=== PATIENT | male | born 1965 | race Caucasian/White ===

== ENCOUNTER 2017-07-30 13:43 | Inpatient (IN) | payer BC ==
[2017-07-30 15:43] VITALS: BMI 21.8
--- NOTE | 2017-07-30 17:14 | HP ---
CIWA Score - CIWA Score Nausea/Vomitin Muscle Tremors: 4-Moderate,w/Arms Extend Anxiety: 4-Mod. Anxious/Guarded Agitation: 4-Moderately Restless Paroxysmal Sweats: 1-Minimal Palms Moist Orientation: 1-Uncertain about Date Tacttile Disturbances: 0-None Auditory Disturbances: 0-None Visual Disturbances: 0-None Headache: 0-None Present CIWA-Ar Total Score: 16 Admission ROS BHS - HPI Chief Complaint: withdrawal sx Allergies/Adverse Reactions: Allergies Allergy/AdvReac Type Severity Reaction Status Date / Time iodine Allergy Severe Difficulty Verified 07/30/17 17:06 Breathing History of Present Illness: 51 years old male with long history of alcohol dependence methadone 70 mg daily has depression is admitted to detox Exam Limitations: No Limitations - Ebola screening Have you traveled outside of the country in the last 21 days: No Have you had contact with anyone from an Ebola affected area: No Have you been sick,other than usual withdrawal symptoms: No Do you have a fever: No - Review of Systems Constitutional: Loss of Appetite, Changes in sleep, Unintentional Wgt. Loss, Unexplained wgt Loss EENT: reports: Blurred Vision (eye glasses at home), Throat Pain Respiratory: reports: Cough Cardiac: reports: No Symptoms Reported GI: reports: Nausea, Poor Appetite, Poor Fluid Intake, Abdominal cramping : reports: No Symptoms Reported Musculoskeletal: reports: No Symptoms Reported Integumentary: reports: No Symptoms Reported Neuro: reports: Tremors Endocrine: reports: No Symptoms Reported Hematology: reports: No Symptoms Reported Psychiatric: reports: Judgement Intact, Anxious, Depressed Other Systems: Reviewed and Negative Patient History - Patient Medical History Hx Anemia: No Hx Asthma: Yes Hx Chronic Obstructive Pulmonary Disease (COPD): No Hx Cancer: No Hx Cardiac Disorders: Yes (history of ventricular tachycardiac) Hx Congestive Heart Failure: No Hx Hypertension: No Hx Hypercholesterolemia: No Hx Pacemaker: No HX Cerebrovascular Accident: No Hx Seizures: No Hx Dementia: No Hx Diabetes: No Hx Gastrointestinal Disorders: No Hx Liver Disease: No Hx Genitourinary Disorders: No Hx Sexually Transmitted Disorders: No Hx Renal Disease (ESRD): No Hx Thyroid Disease: No Hx Human Immunodeficiency Virus (HIV): No Hx Hepatitis C: No Hx Depression: Yes Hx Suicide Attempt: No Hx Bipolar Disorder: No Hx Schizophrenia: No - Patient Surgical History Past Surgical History: No - PPD History Previous Implant?: Yes Documented Results: Negative w/o proof Implanted On Prior [facility] Admission?: No PPD to be Administered?: Yes - Smoking Cessation Smoking history: Current some day smoker Have you smoked in the past 12 months: No Hx Chewing Tobacco Use: No Initiated information on smoking cessation: No - Substance & Tx. History Hx Alcohol Use: Yes Hx Substance Use: No Substance Use Type: Alcohol Hx Substance Use Treatment: Yes (2013evue) - Substances Abused Alcohol Route: Oral Frequency: Daily Amount used: 4 24 oz beers Age of first use: 40 Date of Last Use: 07/29/17 Family Disease History - Family Disease History Family Disease History: Heart Disease: Mother, [place]: Father (), Other: Father Other Family History: only child Admission Physical Exam S - Vital Signs Vital Signs: Vital Signs - 24 hr 07/30/17 15:40 Temperature 97.5 F L Pulse Rate 108 H Respiratory 18 Rate Blood Pressure 134/93 - Physical General Appearance: Yes: Appropriately Dressed, Moderate Distress, Thin, Tremorous, Irritable, Sweating, Anxious HEENTM: Yes: Hearing grossly Normal, Normal ENT Inspection, Normocephalic, Normal Voice, Nasal Congestion Respiratory: Yes: Chest Non-Tender, Lungs Clear, Normal Breath Sounds, No Respiratory Distress, No Accessory Muscle Use Neck: Yes: Supple, Trachea in good position Breast: Yes: Breasts Symetrical Cardiology: Yes: Regular Rhythm, S1, S2, Tachycardia Abdominal: Yes: Non Tender, Soft, Increased Bowel Sounds Genitourinary: Yes: Within Normal Limits Back: Yes: Normal Inspection Musculoskeletal: Yes: full range of Motion, Gait Steady Extremities: Yes: Normal Inspection, Normal Range of Motion, Non-Tender, Tremors Neurological: Yes: Alert, Motor Strength 5/5, Normal Response, Depressed Affect Integumentary: Yes: Warm Lymphatic: Yes: Within Normal Limits - Diagnostic (1) Alcohol dependence with uncomplicated withdrawal Current Visit: Yes Status: Acute (2) Methadone maintenance therapy patient Current Visit: Yes Status: Chronic Comment: 70 mg daily verification pending (3) Asthma Current Visit: Yes Status: Chronic Qualifiers: Asthma severity: mild intermittent Asthma complication type: with status asthmaticus Qualified Code(s): J45.22 - Mild intermittent asthma with status asthmaticus (4) Weight loss Current Visit: Yes Status: Acute Cleared for Admission [facility] - Detox or Rehab [facility] Level of Care: Medically Managed Detox Regimen/Protocol: Librium [facility] Breath Alcohol Content Breath Alcohol Content: 0 Urine Drug Screen - Results Drug Screen Negative: No Urine Drug Screen Results: MTD-Methadone
[2017-07-30] MEDS ORDERED: MAGNESIUM HYDROX 2400MG/30ML ORAL SUSPENSION 30 ML CUP PO PRN (17:17)
[2017-07-30] MEDS ORDERED: guaiFENesin/D-METHORPHAN HB 10 ML UNIT-DOSE CUPS PO PRN (17:17)
[2017-07-30] MEDS ORDERED: IBUPROFEN 400 MG TABLET (FP) PO PRN (17:17)
[2017-07-30] MEDS ORDERED: P-EPHED 60MG/TRIPROLIDI 2.5MG TABLET PO PRN (17:17)
[2017-07-30] MEDS ORDERED: MAGNESIUM CITRATE 300 ML BOTTLE PO PRN (17:17)
[2017-07-30] MEDS ORDERED: LOPERAMIDE HCL 2 MG CAPSULE PO PRN (17:17)
[2017-07-30] MEDS ORDERED: diphenhydrAMINE HCL 50 MG CAPSULE PO PRN (17:17)
[2017-07-30] MEDS ORDERED: MENTHOL/PHENOL 1 EACH UD MM PRN (17:17)
[2017-07-30] MEDS ORDERED: ACETAMINOPHEN 325 MG TABLET (FP) PO PRN (17:17)
[2017-07-30] MEDS ORDERED: chlordiazePOXIDE HCL 25 MG CAPSULE PO ONE (17:17)
[2017-07-30] MEDS ORDERED: ALBUTEROL SO4 6.7 GM HFA INHALER IH PRN (17:18)
[2017-07-30] MEDS ORDERED: ONDANSETRON *ODT* 4 MG TABLET SL PRN (17:19)
[2017-07-30] MEDS: chlordiazePOXIDE HCL 25 MG CAPSULE PO PRN (19:31)
[2017-07-30 21:14] LABS: URINE APPEARANCE TURBID; URINE BILIRUBIN NEGATIVE (NEGATIVE); URINE BLOOD NEGATIVE (NEGATIVE); URINE COLOR AMBER; URINE GLUCOSE (UA) NEGATIVE (NEGATIVE); URINE KETONE NEGATIVE (NEGATIVE); URINE LEUK ESTERASE NEGATIVE (NEGATIVE); URINE NITRITE NEGATIVE (NEGATIVE)
[2017-07-30 21:19] LABS: URINE PROTEIN 1+ (NEGATIVE)
[2017-07-30 21:33] LABS: URINE BACTERIA RARE /hpf (NONE SEEN); URINE RBC 5 /hpf (0-3); URINE WBC 14 /hpf (3-5)
[2017-07-30] MEDS: chlordiazePOXIDE HCL 25 MG CAPSULE PO SCH (22:17)
[2017-07-30] MEDS: THIAMINE HCL 100 MG TABLET (FP) PO SCH (22:18)
[2017-07-31] MEDS: hydrOXYzine PAMOATE 50 MG CAPSULE (FP) PO PRN (06:58)
[2017-07-31] MEDS: chlordiazePOXIDE HCL 25 MG CAPSULE PO SCH ×4 (06:58→22:06)
--- NOTE | 2017-07-31 09:30 | EKG ---
Test Reason : Blood Pressure : / mmHG Vent. Rate : 060 BPM Atrial Rate : 060 BPM P-R Int : 128 ms QRS Dur : 090 ms QT Int : 426 ms P-R-T Axes : 064 078 085 degrees QTc Int : 426 ms SINUS RHYTHM WITH PREMATURE ATRIAL COMPLEXES POSSIBLE LEFT ATRIAL ENLARGEMENT NONSPECIFIC T WAVE ABNORMALITY ABNORMAL ECG NO PREVIOUS ECGS AVAILABLE Confirmed by MD FIDELINA, RAH ([id number]) on 07/31/2017 9:30:33 AM Referred By: Confirmed By:RAH KITCHEN MD
[2017-07-31] MEDS: PRENATAL VITAMINS W/ FOLIC ACID TABLET (FP) PO SCH (10:17)
[2017-07-31] MEDS ORDERED: METHADONE HCL 10 MG TABLET PO ONE (10:19)
[2017-07-31] MEDS ORDERED: METHADONE 40 MG, METHADONE 30 MG PO ONE (10:45)
[2017-07-31] MEDS ORDERED: METHADONE HCL 40 MG DISPERSABLE TABLET ONE (10:46)
[2017-07-31] MEDS ORDERED: METHADONE HCL 10 MG TABLET ONE (10:46)
[2017-07-31 11:05] LABS: ANION GAP 12 (8-16); CALCIUM 9.5 mg/dL (8.5-10.1); CO2 32 mmol/L (21-32); CREATININE 0.8 mg/dL (0.7-1.3); GLUCOSE,RANDOM 157 mg/dL (74-106); MCH 30.8 pg (25.7-33.7); MCHC 33.5 g/dl (32.0-35.9); MEAN CELL VOLUME 92.1 fl (80-96); MEAN PLT VOLUME 8.2 fl (7.5-11.1); PLATELET COUNT 249 K/MM3 (134-434); RDW 14.3 % (11.9-15.9); SGOT/AST 34 U/L (15-37); SGPT/ALT 29 U/L (12-78); WHITE BLOOD COUNT 13.4 K/mm3 (4.0-10.0)
[2017-07-31 11:07] LABS: ALK PHOS 166 U/L (45-117); BILIRUBIN,TOTAL 1.5 mg/dL (0.2-1.0)
--- NOTE | 2017-07-31 12:07 | PN ---
S CIWA - CIWA Score Nausea/Vomitin Muscle Tremors: 3 Anxiety: 3 Agitation: 3 Paroxysmal Sweats: 3 Orientation: 0-Oriented Tacttile Disturbances: 2-Mild Itch/Numbness/Burn Auditory Disturbances: 0-None Visual Disturbances: 0-None Headache: 2-Mild CIWA-Ar Total Score: 19 S Progress Note (SOAP) Subjective: shakes, sweats, anxiety, nausea Objective: 07/31/17 12:05 Vital Signs - 8 hr 07/31/17 07/31/17 07/31/17 04:52 06:48 10:00 Temperature 98.1 F 98.4 F Pulse Rate 88 121 H Respiratory 18 18 20 Rate Blood Pressure 137/98 119/86 Laboratory Last Values WBC 13.4 K/mm3 (4.0-10.0) H 07/31/17 07:50 RBC 5.28 M/mm3 (4.00-5.60) 07/31/17 07:50 Hgb 16.3 GM/dL (11.7-16.9) 07/31/17 07:50 Hct 48.7 % (35.4-49) 07/31/17 07:50 MCV 92.1 fl (80-96) 07/31/17 07:50 MCH 30.8 pg (25.7-33.7) 07/31/17 07:50 MCHC 33.5 g/dl (32.0-35.9) 07/31/17 07:50 RDW 14.3 % (11.9-15.9) 07/31/17 07:50 Plt Count 249 K/MM3 (134-434) 07/31/17 07:50 MPV 8.2 fl (7.5-11.1) 07/31/17 07:50 Sodium 133 mmol/L (136-145) L 07/31/17 07:50 Potassium 3.0 mmol/L (3.5-5.1) L 07/31/17 07:50 Chloride 89 mmol/L (98-107) L 07/31/17 07:50 Carbon Dioxide 32 mmol/L (21-32) 07/31/17 07:50 Anion Gap 12 (8-16) 07/31/17 07:50 BUN 8 mg/dL (7-18) 07/31/17 07:50 Creatinine 0.8 mg/dL (0.7-1.3) 07/31/17 07:50 Creat Clearance w eGFR > 60 (>60) 07/31/17 07:50 Random Glucose 157 mg/dL (74-106) H 07/31/17 07:50 Calcium 9.5 mg/dL (8.5-10.1) 07/31/17 07:50 Total Bilirubin 1.5 mg/dL (0.2-1.0) H 07/31/17 07:50 AST 34 U/L (15-37) 07/31/17 07:50 ALT 29 U/L (12-78) 07/31/17 07:50 Alkaline Phosphatase 166 U/L (45-117) H 07/31/17 07:50 Total Protein 8.0 g/dl (6.4-8.2) 07/31/17 07:50 Albumin 4.0 g/dl (3.4-5.0) 07/31/17 07:50 Urine Color [place] 07/30/17 20:00 Urine Appearance Turbid 07/30/17 20:00 Urine pH 8.0 (5.0-8.0) 07/30/17 20:00 Ur Specific [place] 1.015 (1.005-1.025) 07/30/17 20:00 Urine Protein 1+ (NEGATIVE) H 07/30/17 20:00 Urine Glucose (UA) Negative (NEGATIVE) 07/30/17 20:00 Urine Ketones Negative (NEGATIVE) 07/30/17 20:00 Urine Blood Negative (NEGATIVE) 07/30/17 20:00 Urine Nitrite Negative (NEGATIVE) 07/30/17 20:00 Urine Bilirubin Negative (NEGATIVE) 07/30/17 20:00 Urine Urobilinogen 2.0 mg/dL (0.2-1.0) 07/30/17 20:00 Ur Leukocyte Esterase Negative (NEGATIVE) 07/30/17 20:00 Urine RBC 5 /hpf (0-3) 07/30/17 20:00 Urine WBC 14 /hpf (3-5) 07/30/17 20:00 Urine Bacteria Rare /hpf (NONE SEEN) 07/30/17 20:00 lab noted, elevated white count, no fever or signs of infection Assessment: 07/31/17 12:06 withdrawal sx, leukocytosis Plan: continue detox, repeat CBC
[2017-07-31] MEDS: chlordiazePOXIDE HCL 25 MG CAPSULE PO PRN (14:21)
--- NOTE | 2017-07-31 17:47 | CONSULT ---
[facility] Psychiatric Consult - Data Date of interview: 07/31/17 Admission source: [facility] Identifying data: First admission to [facility] for this 51 y/o male seeking detox treatment on for alcohol dependence.Patient is single,a father of one,homeless,unemployed and currently supported on unemployment benefits. Substance Abuse History: Confirmed by patient. Smoking Cessation. Smoking history: Current some day smoker. Have you smoked in the past 12 months: No. Hx Chewing Tobacco Use: No. Initiated information on smoking cessation: No. - Substance & Tx. History. Hx Alcohol Use: Yes. Hx Substance Use: No. Substance Use Type: Alcohol. Hx Substance Use Treatment: Yes (2013). - Substances Abused. Alcohol. Route: Oral. Frequency: Daily. Amount used : 4 24 oz beers. Age of first use: 40. Date of Last Use: 07/29/17 Medical History: Weight loss,bronchial asthma and a history of ventricular tachycardia. Psychiatric History: Patient denies. Physical/Sexual Abuse/Trauma History: Patient denies. Additional Comment: Urine Drug Screen Results: MTD-Methadone.Noted. Mental Status Exam - Mental Status Exam Alert and Oriented to: Time, Place, Person Cognitive Function: Good Patient Appearance: Well Groomed (frail habitus,thin) Mood: Nervous, Withdrawn, Anxious, Hopeful Affect: Mood Congruent Patient Behavior: Fatigued, Cooperative Speech Pattern: Clear, Appropriate Voice Loudness: Normal Thought Process: Goal Oriented Thought Disorder: Not Present Hallucinations: Denies Suicidal Ideation: Denies Homicidal Ideation: Denies Insight/Judgement: Poor Sleep: Poorly, Difficulty falling asleep Appetite: Good Muscle strength/Tone: Normal Gait/Station: Normal Psychiatric Findings - Problem List ([place] 1, 2,3) (1) Alcohol dependence with uncomplicated withdrawal Current Visit: Yes Status: Acute (2) Opioid dependence on agonist therapy Current Visit: Yes Status: Acute (3) Nicotine dependence Current Visit: Yes Status: Acute (4) Substance induced mood disorder Current Visit: Yes Status: Acute (5) Weight loss Current Visit: Yes Status: Acute (6) Asthma Current Visit: Yes Status: Chronic Qualifiers: Asthma severity: mild intermittent Asthma complication type: with status asthmaticus Qualified Code(s): J45.22 - Mild intermittent asthma with status asthmaticus (7) Insomnia Current Visit: Yes Status: Acute - Initial Treatment Plan Initial Treatment Plan: Psychoeducation.Detoxification.Ambien 5 mg po hs prn.Patient made aware of risk of parasomnias.He agrees with careplan.Observation.
[2017-07-31] MEDS: THIAMINE HCL 100 MG TABLET (FP) PO SCH (22:06)
[2017-07-31] MEDS: ZOLPIDEM TARTRATE 5 MG TABLET PO PRN (22:06)
[2017-08-01] MEDS ORDERED: METHADONE HCL 40 MG DISPERSABLE TABLET ONE (04:53)
[2017-08-01] MEDS ORDERED: METHADONE HCL 10 MG TABLET ONE (04:54)
[2017-08-01] MEDS: METHADONE 40 MG, METHADONE 30 MG PO SCH (05:20)
[2017-08-01] MEDS: chlordiazePOXIDE HCL 25 MG CAPSULE PO SCH ×3 (05:20→17:29)
[2017-08-01] MEDS ORDERED: METHADONE HCL 10 MG TABLET PO SCH (06:00)
[2017-08-01] MEDS: POTASSIUM CHLORIDE TABS 20 MEQ TABLET.ER (FP) PO SCH (07:51)
[2017-08-01] MEDS: hydrOXYzine PAMOATE 50 MG CAPSULE (FP) PO PRN ×2 (07:52→15:25)
[2017-08-01] MEDS: PRENATAL VITAMINS W/ FOLIC ACID TABLET (FP) PO SCH (10:05)
[2017-08-01] MEDS: MAG HYDROX/AL HYDROX/SIMETH 30 ML UNIT-DOSE CUP PO PRN (15:25)
--- NOTE | 2017-08-01 19:37 | PN ---
[facility] CIWA - CIWA Score Nausea/Vomitin-No Nausea/No Vomiting Muscle Tremors: 3 Anxiety: 4-Mod. Anxious/Guarded Agitation: 4-Moderately Restless Paroxysmal Sweats: 3 Orientation: 0-Oriented Tacttile Disturbances: 0-None Auditory Disturbances: 0-None Visual Disturbances: 0-None Headache: 0-None Present CIWA-Ar Total Score: 14 BHS Progress Note (SOAP) Subjective: Anxiety,tremors,sweating,interrupted sleep,restless. Objective: 08/01/17 19:35 Vital Signs - 8 hr 08/01/17 08/01/17 14:40 17:37 Temperature 97.3 F L 97.2 F L Pulse Rate 100 H 109 H Respiratory 18 18 Rate Blood Pressure 113/79 126/78 Laboratory Last Values WBC 13.4 K/mm3 (4.0-10.0) H 07/31/17 07:50 RBC 5.28 M/mm3 (4.00-5.60) 07/31/17 07:50 Hgb 16.3 GM/dL (11.7-16.9) 07/31/17 07:50 Hct 48.7 % (35.4-49) 07/31/17 07:50 MCV 92.1 fl (80-96) 07/31/17 07:50 MCH 30.8 pg (25.7-33.7) 07/31/17 07:50 MCHC 33.5 g/dl (32.0-35.9) 07/31/17 07:50 RDW 14.3 % (11.9-15.9) 07/31/17 07:50 Plt Count 249 K/MM3 (134-434) 07/31/17 07:50 MPV 8.2 fl (7.5-11.1) 07/31/17 07:50 Sodium 133 mmol/L (136-145) L 07/31/17 07:50 Potassium 3.0 mmol/L (3.5-5.1) L 07/31/17 07:50 Chloride 89 mmol/L (98-107) L 07/31/17 07:50 Carbon Dioxide 32 mmol/L (21-32) 07/31/17 07:50 Anion Gap 12 (8-16) 07/31/17 07:50 BUN 8 mg/dL (7-18) 07/31/17 07:50 Creatinine 0.8 mg/dL (0.7-1.3) 07/31/17 07:50 Creat Clearance w eGFR > 60 (>60) 07/31/17 07:50 Random Glucose 157 mg/dL (74-106) H 07/31/17 07:50 Calcium 9.5 mg/dL (8.5-10.1) 07/31/17 07:50 Total Bilirubin 1.5 mg/dL (0.2-1.0) H 07/31/17 07:50 AST 34 U/L (15-37) 07/31/17 07:50 ALT 29 U/L (12-78) 07/31/17 07:50 Alkaline Phosphatase 166 U/L (45-117) H 07/31/17 07:50 Total Protein 8.0 g/dl (6.4-8.2) 07/31/17 07:50 Albumin 4.0 g/dl (3.4-5.0) 07/31/17 07:50 Urine Color [place] 07/30/17 20:00 Urine Appearance Turbid 07/30/17 20:00 Urine pH 8.0 (5.0-8.0) 07/30/17 20:00 Ur Specific [place] 1.015 (1.005-1.025) 07/30/17 20:00 Urine Protein 1+ (NEGATIVE) H 07/30/17 20:00 Urine Glucose (UA) Negative (NEGATIVE) 07/30/17 20:00 Urine Ketones Negative (NEGATIVE) 07/30/17 20:00 Urine Blood Negative (NEGATIVE) 07/30/17 20:00 Urine Nitrite Negative (NEGATIVE) 07/30/17 20:00 Urine Bilirubin Negative (NEGATIVE) 07/30/17 20:00 Urine Urobilinogen 2.0 mg/dL (0.2-1.0) 07/30/17 20:00 Ur Leukocyte Esterase Negative (NEGATIVE) 07/30/17 20:00 Urine RBC 5 /hpf (0-3) 07/30/17 20:00 Urine WBC 14 /hpf (3-5) 07/30/17 20:00 Urine Bacteria Rare /hpf (NONE SEEN) 07/30/17 20:00 RPR Titer Nonreactive (NONREACTIVE) 07/31/17 07:50 labs noted Assessment: 08/01/17 19:36 Withdrawal sx. Plan: Continue detox
[2017-08-01] MEDS: ZOLPIDEM TARTRATE 5 MG TABLET PO PRN (22:02)
[2017-08-01] MEDS: THIAMINE HCL 100 MG TABLET (FP) PO SCH (22:02)
[2017-08-01] MEDS: chlordiazePOXIDE 5 MG CAPSULE PO SCH (22:02)
[2017-08-02] MEDS ORDERED: METHADONE HCL 40 MG DISPERSABLE TABLET ONE (04:49)
[2017-08-02] MEDS ORDERED: METHADONE HCL 10 MG TABLET ONE (04:50)
[2017-08-02] MEDS: chlordiazePOXIDE 5 MG CAPSULE PO SCH ×3 (05:40→17:42)
[2017-08-02] MEDS: METHADONE 40 MG, METHADONE 30 MG PO SCH (05:41)
[2017-08-02] MEDS: hydrOXYzine PAMOATE 50 MG CAPSULE (FP) PO PRN ×2 (09:16→17:42)
[2017-08-02] MEDS: PRENATAL VITAMINS W/ FOLIC ACID TABLET (FP) PO SCH (10:06)
[2017-08-02] MEDS: POTASSIUM CHLORIDE TABS 20 MEQ TABLET.ER (FP) PO SCH (10:06)
[2017-08-02 10:17] LABS: MCH 31.1 pg (25.7-33.7); MCHC 33.5 g/dl (32.0-35.9); MEAN CELL VOLUME 93.1 fl (80-96); MEAN PLT VOLUME 8.2 fl (7.5-11.1); PLATELET COUNT 164 K/MM3 (134-434); RDW 14.6 % (11.9-15.9); WHITE BLOOD COUNT 11.2 K/mm3 (4.0-10.0)
[2017-08-02 10:25] LABS: ANION GAP 5 (8-16); CALCIUM 8.9 mg/dL (8.5-10.1); CO2 33 mmol/L (21-32); CREATININE 0.7 mg/dL (0.7-1.3); GLUCOSE,RANDOM 82 mg/dL (74-106)
[2017-08-02 10:29] LABS: ALK PHOS 134 U/L (45-117); BILIRUBIN,TOTAL 0.4 mg/dL (0.2-1.0)
--- NOTE | 2017-08-02 10:34 | PN ---
BHS Progress Note (SOAP) Subjective: anxiety sweats Objective: 08/02/17 10:32 Vital Signs Temperature 98.2 F 08/02/17 09:54 Pulse Rate 106 H 08/02/17 09:54 Respiratory Rate 18 08/02/17 09:54 Blood Pressure 133/84 08/02/17 09:54 O2 Sat by Pulse Oximetry (%) AAOx3 ambulating no acute distress Assessment: 08/02/17 10:33 withdrawal sx Plan: continue detox increase fluids clonidine 0.1mg x one
[2017-08-02] MEDS ORDERED: cloNIDine HCL 0.1 MG TABLET PO ONE (10:45)
[2017-08-02] MEDS: chlordiazePOXIDE HCL 25 MG CAPSULE PO PRN (13:54)
[2017-08-02] MEDS: chlordiazePOXIDE HCL 10 MG CAPSULE PO SCH (22:06)
[2017-08-02] MEDS: ZOLPIDEM TARTRATE 5 MG TABLET PO PRN (22:06)
[2017-08-02] MEDS: THIAMINE HCL 100 MG TABLET (FP) PO SCH (22:06)
[2017-08-02] MEDS: MAG HYDROX/AL HYDROX/SIMETH 30 ML UNIT-DOSE CUP PO PRN (22:07)
[2017-08-03] MEDS ORDERED: METHADONE HCL 40 MG DISPERSABLE TABLET ONE (04:31)
[2017-08-03] MEDS ORDERED: METHADONE HCL 10 MG TABLET ONE (04:32)
[2017-08-03] MEDS: METHADONE 40 MG, METHADONE 30 MG PO SCH (05:33)
[2017-08-03] MEDS: chlordiazePOXIDE HCL 10 MG CAPSULE PO SCH (05:34)
[2017-08-03] MEDS: MAG HYDROX/AL HYDROX/SIMETH 30 ML UNIT-DOSE CUP PO PRN (05:34)
[2017-08-03] MEDS: hydrOXYzine PAMOATE 50 MG CAPSULE (FP) PO PRN (07:42)
--- NOTE | 2017-08-03 09:44 | DS ---
[facility] Detox Discharge Summary Admission Date: 07/30/17 Discharge Date: 08/03/17 - History Present History: Alcohol Dependence, Opioid Dependence Pertinent Past History: anxiety, depression, nicotine dependence, insomnia - Physical Exam Results Vital Signs: Vital Signs Temperature 98.2 F 08/03/17 06:46 Pulse Rate 77 08/03/17 06:46 Respiratory Rate 16 08/03/17 06:46 Blood Pressure 107/70 08/03/17 06:46 O2 Sat by Pulse Oximetry (%) Laboratory Tests 07/30/17 07/31/17 07/31/17 20:00 07:50 07:50 WBC 13.4 H RBC 5.28 Hgb 16.3 Hct 48.7 MCV 92.1 MCH 30.8 MCHC 33.5 RDW 14.3 Plt Count 249 MPV 8.2 Sodium 133 L Potassium 3.0 L Chloride 89 L Carbon Dioxide 32 Anion Gap 12 BUN 8 Creatinine 0.8 Creat Clearance w eGFR > 60 Random Glucose 157 H Calcium 9.5 Total Bilirubin 1.5 H AST 34 ALT 29 Alkaline Phosphatase 166 H Total Protein 8.0 Albumin 4.0 Urine Color [place] Urine Appearance Turbid Urine pH 8.0 Ur Specific [place] 1.015 Urine Protein 1+ H Urine Glucose (UA) Negative Urine Ketones Negative Urine Blood Negative Urine Nitrite Negative Urine Bilirubin Negative Urine Urobilinogen 2.0 Ur Leukocyte Esterase Negative Urine RBC 5 Urine WBC 14 Urine Bacteria Rare RPR Titer 07/31/17 08/02/17 08/02/17 07:50 07:00 07:00 WBC 11.2 H RBC 4.25 Hgb 13.2 D Hct 39.5 D MCV 93.1 MCH 31.1 MCHC 33.5 RDW 14.6 Plt Count 164 D MPV 8.2 Sodium 135 L Potassium 4.5 D Chloride 97 L Carbon Dioxide 33 H Anion Gap 5 L BUN 13 D Creatinine 0.7 Creat Clearance w eGFR Random Glucose 82 D Calcium 8.9 Total Bilirubin 0.4 D AST ALT Alkaline Phosphatase 134 H Total Protein Albumin Urine Color Urine Appearance Urine pH Ur Specific [place] Urine Protein Urine Glucose (UA) Urine Ketones Urine Blood Urine Nitrite Urine Bilirubin Urine Urobilinogen Ur Leukocyte Esterase Urine RBC Urine WBC Urine Bacteria RPR Titer Nonreactive Pertinent Admission Physical Exam Findings: withdrawal sx - Treatment Hospital Course: Detox Protocol Followed, Detoxed Safely, Responded well, Discharged Condition Good, Rehab Referral Accepted Patient has Accepted a Rehab Referral to: Yes - Medication Discharge Medications: Ambulatory Orders NK [No Known Home Medication] 07/30/17 - Diagnosis (1) Opioid dependence on agonist therapy Status: Acute (2) Substance induced mood disorder Status: Acute (3) Weight loss Status: Acute (4) Alcohol dependence with uncomplicated withdrawal Status: Chronic (5) Asthma Status: Chronic Qualifiers: Asthma severity: mild intermittent Asthma complication type: with status asthmaticus Qualified Code(s): J45.22 - Mild intermittent asthma with status asthmaticus (6) Nicotine dependence Status: Chronic Qualifiers: Nicotine product type: cigarettes Substance use status: uncomplicated Qualified Code(s): F17.210 - Nicotine dependence, cigarettes, uncomplicated - AMA Did Patient Leave Against Medical Advice: No
[2017-08-03 10:31] VITALS: BP 131/82; PULSE 112; TEMP 97.8
== END 2017-08-03 09:52 | disposition home or self-care (01) | DRG 773 ==
LOC: YASAS 13:43 → Y6N 17:40
PROVIDERS: ADMIT Internal Medicine Addiction Medicine; ATTEND Internal Medicine Addiction Medicine
PROC: HZ2ZZZZ Detoxification Services for Substance Abuse Treatment (ICD-10-PCS; principal; 2017-07-30)
DX: F10.230 Alcohol dependence with withdrawal, uncomplicated (principal); F11.20 Opioid dependence, uncomplicated; F17.210 Nicotine dependence, cigarettes, uncomplicated; F19.24 Other psychoactive substance dependence with psychoactive substance-induced mood disorder; D72.829 Elevated white blood cell count, unspecified; J45.22 Mild intermittent asthma with status asthmaticus; G47.00 Insomnia, unspecified; Z87.898 Personal history of other specified conditions; R00.0 Tachycardia, unspecified
CPT/HCPCS: 36415; 80048; 80053; 81003; 81015; 82247; 84075; 85027; 86593; 93005; 93010

== ENCOUNTER 2021-01-30 15:25 | Inpatient (IN) | payer BC, OTHER ==
[2021-01-30 15:30] VITALS: BMI 18.2
[2021-01-30] MEDS ORDERED: IBUPROFEN 400 MG TABLET (FP) PO PRN (16:35)
[2021-01-30] MEDS ORDERED: MAG HYDROX/AL HYDROX/SIMETH 30 ML UNIT-DOSE CUP PO PRN (16:35)
[2021-01-30] MEDS ORDERED: ONDANSETRON *ODT* 4 MG TABLET SL PRN (16:35)
[2021-01-30] MEDS ORDERED: chlordiazePOXIDE HCL 25 MG CAPSULE PO PRN (16:35)
[2021-01-30] MEDS ORDERED: MAGNESIUM HYDROX 2400MG/30ML ORAL SUSPENSION 30 ML CUP PO PRN (16:35)
[2021-01-30] MEDS ORDERED: ACETAMINOPHEN 325 MG TABLET (FP) PO PRN ×2 (16:35)
[2021-01-30] MEDS ORDERED: MAGNESIUM CITRATE 300 ML BOTTLE PO PRN (16:35)
[2021-01-30] MEDS ORDERED: BISMUTH SUBSALICYLATE 524 MG/30 ML UD PO PRN (16:35)
[2021-01-30] MEDS ORDERED: NICOTINE POLACRILEX 2 MG GUM BUC PRN (16:35)
[2021-01-30] MEDS ORDERED: MENTHOL/PHENOL 1 EACH UD MM PRN (16:35)
[2021-01-31] MEDS: NICOTINE 7 MG/24 HOURS TOPICAL PATCH TD SCH ×2 (02:04→10:14)
[2021-01-31] MEDS: hydrOXYzine PAMOATE 25 MG CAPSULE (FP) PO SCH ×7 (02:05→22:08)
[2021-01-31] MEDS: chlordiazePOXIDE HCL 25 MG CAPSULE PO SCH ×6 (02:05→22:00)
[2021-01-31] MEDS: PRENATAL VITAMINS W/ FOLIC ACID TABLET (FP) PO SCH ×2 (02:05→10:12)
[2021-01-31] MEDS: THIAMINE HCL 100 MG TABLET (FP) PO SCH ×2 (02:06→22:03)
[2021-01-31] MEDS: MELATONIN 5 MG TABLETS PO SCH ×2 (02:13→22:03)
[2021-01-31] MEDS: METHADONE HCL 40 MG DISPERSABLE TABLET PO SCH (05:59)
[2021-01-31 09:51] LABS: HEMATOCRIT 40.3 % (35.4-49); HEMOGLOBIN 13.6 GM/dL (11.7-16.9); MCH 32.5 pg (25.7-33.7); MCHC 33.6 g/dl (32.0-35.9); MEAN CELL VOLUME 96.7 fl (80-96); PLATELET COUNT 197 K/MM3 (134-434); RBC 4.17 M/mm3 (4.00-5.60); RDW 14.7 % (11.9-15.9); WHITE BLOOD COUNT 8.5 K/mm3 (4.0-10.0)
[2021-01-31 09:53] LABS: POTASSIUM 3.6 mmol/L (3.5-5.1)
[2021-01-31 10:12] LABS: BILIRUBIN,TOTAL 0.9 mg/dL (0.2-1)
[2021-01-31] MEDS: METHOCARBAMOL 500 MG TABLET PO PRN ×2 (10:16→17:12)
[2021-01-31 10:28] LABS: CALCIUM 9.1 mg/dL (8.5-10.1)
[2021-01-31 10:29] LABS: ALBUMIN 3.5 g/dl (3.4-5.0); BLOOD UREA NITROGEN 4.1 mg/dL (7-18)
[2021-01-31 10:32] LABS: CREATININE 0.7 mg/dL (0.55-1.3)
[2021-01-31 10:33] LABS: TOT PROT 7.2 g/dl (6.4-8.2)
[2021-02-01] MEDS: chlordiazePOXIDE HCL 25 MG CAPSULE PO SCH ×4 (06:04→22:19)
[2021-02-01] MEDS: hydrOXYzine PAMOATE 25 MG CAPSULE (FP) PO SCH ×5 (06:04→22:19)
[2021-02-01] MEDS: METHADONE HCL 40 MG DISPERSABLE TABLET PO SCH (06:04)
[2021-02-01] MEDS: METHOCARBAMOL 500 MG TABLET PO PRN ×2 (07:39→17:12)
[2021-02-01] MEDS: PRENATAL VITAMINS W/ FOLIC ACID TABLET (FP) PO SCH (10:15)
[2021-02-01] MEDS: NICOTINE 7 MG/24 HOURS TOPICAL PATCH TD SCH (10:17)
[2021-02-01] MEDS: THIAMINE HCL 100 MG TABLET (FP) PO SCH (22:19)
[2021-02-01] MEDS: MELATONIN 5 MG TABLETS PO SCH (22:20)
[2021-02-02] MEDS ORDERED: chlordiazePOXIDE HCL 10 MG CAPSULE PO PRN
[2021-02-02] MEDS: METHADONE HCL 40 MG DISPERSABLE TABLET PO SCH (06:19)
[2021-02-02] MEDS: hydrOXYzine PAMOATE 25 MG CAPSULE (FP) PO SCH ×5 (06:19→22:02)
[2021-02-02] MEDS: chlordiazePOXIDE HCL 10 MG CAPSULE PO SCH ×4 (06:19→22:03)
[2021-02-02] MEDS: METHOCARBAMOL 500 MG TABLET PO PRN ×2 (06:48→13:30)
[2021-02-02] MEDS: NICOTINE 7 MG/24 HOURS TOPICAL PATCH TD SCH (09:59)
[2021-02-02] MEDS: PRENATAL VITAMINS W/ FOLIC ACID TABLET (FP) PO SCH (09:59)
[2021-02-02] MEDS: MELATONIN 5 MG TABLETS PO SCH (22:02)
[2021-02-02] MEDS: THIAMINE HCL 100 MG TABLET (FP) PO SCH (22:02)
[2021-02-03] MEDS: METHADONE HCL 40 MG DISPERSABLE TABLET PO SCH (05:40)
[2021-02-03] MEDS: hydrOXYzine PAMOATE 25 MG CAPSULE (FP) PO SCH ×5 (05:40→22:37)
[2021-02-03] MEDS: chlordiazePOXIDE HCL 10 MG CAPSULE PO SCH ×2 (05:41→17:40)
[2021-02-03] MEDS: METHOCARBAMOL 500 MG TABLET PO PRN ×3 (06:05→19:24)
[2021-02-03] MEDS: PRENATAL VITAMINS W/ FOLIC ACID TABLET (FP) PO SCH (10:02)
[2021-02-03] MEDS: NICOTINE 7 MG/24 HOURS TOPICAL PATCH TD SCH (10:02)
[2021-02-03] MEDS: THIAMINE HCL 100 MG TABLET (FP) PO SCH (22:37)
[2021-02-03] MEDS: MELATONIN 5 MG TABLETS PO SCH (22:37)
[2021-02-03 23:43] VITALS: BP 150/89; PULSE 100; TEMP 97.5
[2021-02-04] MEDS ORDERED: chlordiazePOXIDE HCL 10 MG CAPSULE PO ONE (05:00)
[2021-02-04] MEDS: hydrOXYzine PAMOATE 25 MG CAPSULE (FP) PO SCH (05:23)
[2021-02-04] MEDS: METHADONE HCL 40 MG DISPERSABLE TABLET PO SCH (05:23)
[2021-02-04] MEDS: METHOCARBAMOL 500 MG TABLET PO PRN (05:24)
== END 2021-02-04 06:58 | disposition home or self-care (01) | DRG 773 ==
LOC: YASAS 15:25 → Y6N 16:23
PROVIDERS: ADMIT Allergy & Immunology; ATTEND Allergy & Immunology
PROC: HZ2ZZZZ Detoxification Services for Substance Abuse Treatment (ICD-10-PCS; principal; 2021-01-30)
DX: F10.230 Alcohol dependence with withdrawal, uncomplicated (principal); F13.230 Sedative, hypnotic or anxiolytic dependence with withdrawal, uncomplicated; F11.20 Opioid dependence, uncomplicated; F17.210 Nicotine dependence, cigarettes, uncomplicated; F10.280 Alcohol dependence with alcohol-induced anxiety disorder; F10.282 Alcohol dependence with alcohol-induced sleep disorder; F19.24 Other psychoactive substance dependence with psychoactive substance-induced mood disorder; F32.9 Major depressive disorder, single episode, unspecified; I47.2 Ventricular tachycardia; J45.20 Mild intermittent asthma, uncomplicated; R74.8 Abnormal levels of other serum enzymes; R73.9 Hyperglycemia, unspecified; R07.89 Other chest pain; R94.31 Abnormal electrocardiogram [ECG] [EKG]; R63.4 Abnormal weight loss; Z68.1 Body mass index [BMI] 19.9 or less, adult; Z91.048 Other nonmedicinal substance allergy status
CPT/HCPCS: 36415; 80053; 82962; 85027; 86780; 93005; 93010; C9803; U0003

== ENCOUNTER 2021-01-30 18:41 | Emergency (ER) | payer OTHER ==
[2021-01-30 19:26] VITALS: TEMP 99.1; BMI 18.3
[2021-01-30] MEDS ORDERED: MAGNESIUM SULF 50% (8.12 MEQ/2 ML-1 GM VIAL) IVPB ONE (19:36)
[2021-01-30] MEDS ORDERED: diazePAM CARPU-JECT 10 MG/2 ML DISP.SYRIN IVPUSH ONE (19:36)
[2021-01-30] MEDS ORDERED: FOLIC ACID INJECTION - 1 MG, THIAMINE HCL 100 MG, MULTIVIT INJECTION ADULT 10 ML in SOD... IVPB ONE (19:37)
[2021-01-30] MEDS ORDERED: MAGNESIUM SULFATE IN WATER 2 GM/50 ML IVPB IVPB ONE (19:49)
[2021-01-30] MEDS ORDERED: diazePAM CARPU-JECT 10 MG/2 ML DISP.SYRIN ONE (19:49)
[2021-01-30 20:11] LABS: BASO % 0.5 % (0-2.0); EOS % 0.1 % (0-4.5); HEMATOCRIT 40.2 % (35.4-49); HEMOGLOBIN 13.8 GM/dL (11.7-16.9); INR 1.1 (0.83-1.09); LYMPH % 13.9 % (8-40); MCH 32.6 pg (25.7-33.7); MCHC 34.2 g/dl (32.0-35.9); MEAN CELL VOLUME 95.1 fl (80-96); MEAN PLT VOLUME 7.3 fl (7.5-11.1); MONO % 11.6 % (3.8-10.2); NEUT % 73.9 % (42.8-82.8); PLATELET COUNT 209 K/MM3 (134-434); PROTHROMBIN TIME (PATIENT) 13.5 SEC (9.7-13.0); RBC 4.22 M/mm3 (4.00-5.60); RDW 14.9 % (11.9-15.9); WHITE BLOOD COUNT 9.8 K/mm3 (4.0-10.0)
[2021-01-30 20:14] LABS: ACTIVATED PTT 35.7 SECONDS (25.2-36.5)
[2021-01-30 20:25] LABS: CHLORIDE 96 mmol/L (98-107); SODIUM 136 mmol/L (136-145)
[2021-01-30 20:28] LABS: ALBUMIN 3.2 g/dl (3.4-5.0); ANION GAP 4 MMOL/L (8-16); BLOOD UREA NITROGEN 3.2 mg/dL (7-18); CALCIUM 8.6 mg/dL (8.5-10.1); CO2 36 mmol/L (21-32)
[2021-01-30 20:29] LABS: GLUCOSE,RANDOM 98 mg/dL (74-106)
[2021-01-30 20:32] LABS: CREATININE 0.6 mg/dL (0.55-1.3); SGOT/AST 32 U/L (15-37); SGPT/ALT 24 U/L (13-61)
[2021-01-30 20:33] LABS: BILIRUBIN,TOTAL 1.3 mg/dL (0.2-1); TOT PROT 6.8 g/dl (6.4-8.2)
[2021-01-30 20:35] LABS: ALK PHOS 156 U/L (45-117)
[2021-01-30] MEDS ORDERED: POTASSIUM CHLORIDE TABS 20 MEQ TABLET.ER (FP) PO ONE ×2 (20:50→20:54)
[2021-01-30 22:29] VITALS: BP 130/89; PULSE 86
== END 2021-01-31 01:00 | disposition home or self-care (01) ==
LOC: JER 18:41
PROC: 3E033NZ Introduction of Analgesics, Hypnotics, Sedatives into Peripheral Vein, Percutaneous Approach (ICD-10-PCS; principal; 2021-01-30)
PROC: 3E033GC Introduction of Other Therapeutic Substance into Peripheral Vein, Percutaneous Approach (ICD-10-PCS; 2021-01-30)
PROC: 3E033GC Introduction of Other Therapeutic Substance into Peripheral Vein, Percutaneous Approach (ICD-10-PCS; 2021-01-30)
DX: F10.230 Alcohol dependence with withdrawal, uncomplicated (principal)
CPT/HCPCS: 36415; 71046-TC-FY; 80053; 84439; 84443; 84484; 85025; 85610; 85730; 93005; 93010; 99285-25